=== PATIENT | female | born 1975 ===

== ENCOUNTER 2021-01-12 09:21 | Outpatient (CLI) | payer BC ==
--- NOTE | 2021-01-12 12:33 | Ultrasound Report ---
BILATERAL DIGITAL DIAGNOSTIC MAMMOGRAM WITH CAD CONVENTIONAL, 01/12/2021 LEFT LIMITED BREAST ULTRASOUND CLINICAL INFORMATION / INDICATION: Patient presents for evaluation of an area of palpable concern in the left axilla. TECHNIQUE: Digital bilateral mammographic imaging was performed. Limited ultrasound was performed. Th is examination was interpreted with the benefit of Computer-Aided Detection (CAD) analysis. COMPARISON: Prior mammogram 07/15/2014 FINDINGS: Breast Density: There are scattered areas of fibroglandular density. MAMMOGRAPHIC FINDINGS: No dominant mass, suspicious calcifications, or architectural distortion in ei ther breast. There has been no significant change compared with the prior examination. There is no ma mmographic abnormality to account for the area of palpable concern in the left axilla, therefore targ eted left axillary ultrasound was subsequently performed. ULTRASOUND FINDINGS: Targeted ultrasound evaluation was performed of the area of interest. Targeted ultrasound of the area of palpable concern in the left axilla reveals a hypoechoic intradermal lesio n measuring up to approximately 9 x 5 x 3 mm. The lesion is parallel. There is increased through quintana smission. No internal vascularity is demonstrated. IMPRESSION: 1. A benign intradermal lesion is seen at the site of palpable concern in the left axilla. This most likely reflects a sebaceous cyst, though clinical correlation is recommended. Follow up recommendation: Routine yearly BI-RADS Category 2: Benign. A "normal" or negative report should not discourage follow up or biopsy of a clinically significant f inding. A written summary of these findings will be mailed to the patient. The patient will be entered into a mammography reporting system which will generate a reminder letter for the patient's next appointmen t at the appropriate interval. According to the [employer], yearly mammograms are recommended starting at age 40 and continuing as long as a woman is in good health. Breast MRI is recommended for women with an alta roximately 20-25% or greater lifetime risk of breast cancer, including women with a strong family his tory of breast or ovarian cancer and women who have been treated for Hodgkin's disease. Signer Name: Rosanna Escudero MD Signed: 01/12/2021 12:28 PM Workstation Name: [id number]
== END 2021-01-12 09:22 | disposition home or self-care (01) ==
LOC: MAMMO 09:21
PROVIDERS: ATTEND Obstetrics & Gynecology
DX: N63.0 Unspecified lump in unspecified breast (principal); R92.8 Other abnormal and inconclusive findings on diagnostic imaging of breast
CPT/HCPCS: 77066